=== PATIENT | female | born 1940 | race Caucasian/White ===

== ENCOUNTER 2019-10-22 09:04 | Emergency (ER) | payer OTHER ==
[~2019-10-22] VITALS: Ht 167.6 cm; Wt 66.7 kg
[2019-10-22 09:09] VITALS: BP 131/93
[2019-10-22] MEDS ORDERED: AMOXIL/CLAVULANATE 875/125 MG 1 TAB PO ONE (09:30)
[2019-10-22] MEDS ORDERED: BACITRACIN OINT 500 UNITS/GM PKT TP ONE (09:30)
--- NOTE | 2019-10-22 09:38 | NUR ---
BIB SELF C/O CAT SCRATCH TO LEFT HAND, MEASURING 3CM X 1/2 CM. PAIN 4/10. FULL RANGE OF MOTION FOR BUE, NO LEFT ARM PAIN NOTED. NO BLEEDING, NO DISCHARGE, NO FOUL ORDER NOTED. MILD ECCHYMOSIS NOTED AROUND SKIN TEAR. NO FLU SYMPTOMS, NO N/V/D REPORTED. PATIENT IS CURRENT ON TDAP AND CLAIMS CAT IS CURRENT ON VACCINES.
--- NOTE | 2019-10-22 09:57 | NUR ---
Patient discharged with v/s stable. Written and verbal after care instructions given and explained. Patient alert, oriented and verbalized understanding of instructions. Ambulatory with steady gait. All questions addressed prior to discharge. ID band removed. Patient advised to follow up with PMD. Rx of AUGMENTIN 875MG given. Patient educated on indication of medication including possible reaction and side effects. Opportunity to ask questions provided and answered.
[2019-10-22 09:58] VITALS: BP 110/75
== END 2019-10-22 09:57 | disposition home or self-care (01) ==
LOC: MED 09:04
DX: S61.412A Laceration without foreign body of left hand, initial encounter (principal); L03.114 Cellulitis of left upper limb; W55.03XA Scratched by cat, initial encounter; Y93.89 Activity, other specified; Y92.89 Other specified places as the place of occurrence of the external cause; Y99.8 Other external cause status
CPT/HCPCS: 99283

== ENCOUNTER 2019-10-25 12:36 | Emergency (ER) | payer OTHER ==
[~2019-10-25] VITALS: Ht 167.6 cm; Wt 66.7 kg
[2019-10-25 13:00] VITALS: BP 147/82
--- NOTE | 2019-10-25 13:19 | NUR ---
PT AMBULATED TO BED 04
--- NOTE | 2019-10-25 13:51 | NUR ---
F/U WOUND CARE TODAY SEEN IN OUR ER 10/22/2019 S/P CAT SCRATCH LEFT HAND-- HX--DENIES RX---AUGMENTIN, BACITRACIN OINTMENT
--- NOTE | 2019-10-25 14:12 | NUR ---
Dr. Plaza is evaluating the patient at bedside.
[2019-10-25 14:30] VITALS: BP 147/82
--- NOTE | 2019-10-25 14:30 | NUR ---
Patient discharged with v/s stable. Written and verbal after care instructions given and explained. Patient verbalized understanding. Ambulatory with steady gait. All questions addressed prior to discharge. Advised to follow up with PMD.
== END 2019-10-25 14:30 | disposition home or self-care (01) ==
LOC: MED 12:36
DX: Z48.00 Encounter for change or removal of nonsurgical wound dressing (principal)
CPT/HCPCS: 99283

== ENCOUNTER 2020-01-29 14:32 | Outpatient (CLI) | payer OTHER ==
[2020-01-29 17:20] LABS: APPEARANCE,URINE HAZY (CLEAR); BILIRUBIN,URINE NEGATIVE (NEGATIVE); BLOOD, URINE 1+ (NEGATIVE); COLOR,URINE YELLOW (YELLOW); LEUKOCYTE ESTERASE ,URINE TRACE (NEGATIVE); NITRITE, URINE NEGATIVE (NEGATIVE); UGLUCOSE NEGATIVE (NEGATIVE)
[2020-01-29 17:27] LABS: WBC,URINE 16-25 (MOD) /HPF (0-5)
== END 2020-01-29 20:09 | disposition home or self-care (01) ==
LOC: MLB 14:32
PROVIDERS: ATTEND Internal Medicine Geriatric Medicine
DX: N39.0 Urinary tract infection, site not specified (principal)
CPT/HCPCS: 81001; 87086; 87186

== ENCOUNTER → 2020-02-19 | Outpatient (CLI) | payer OTHER | END | disposition home or self-care (01) | LOC: MLB 11:58 | PROVIDERS: ATTEND Internal Medicine Geriatric Medicine | DX: N39.0 Urinary tract infection, site not specified (principal) | CPT/HCPCS: 87086 ==